=== PATIENT | male | born 1970 | race Caucasian/White ===

== ENCOUNTER 2018-09-08 05:29 | Emergency (ER) | payer OTHER, SELFPAY ==
[2018-09-08 05:30] VITALS: BP 197/92; PULSE 65; RESP 16; TEMP 37.3; O2SAT 97; BMI 36.6
--- NOTE | 2018-09-08 05:31 | ED.RN ---
NO OLD EKGS IN MUSE
--- NOTE | 2018-09-08 05:39 | EKG12_ITS ---
Test Reason : CP Blood Pressure : / mmHG Vent. Rate : 061 BPM Atrial Rate : 061 BPM P-R Int : 192 ms QRS Dur : 124 ms QT Int : 408 ms P-R-T Axes : -18 -48 000 degrees QTc Int : 410 ms Normal sinus rhythm Left anterior fascicular block Abnormal ECG Confirmed by LILI WHEELER ([id number]), online content editor HARDIK ALEMAN ([id number]) on 09/14/2018 3:41:19 PM Referred By: MANGO Confirmed By:LILI WHEELER
--- NOTE | 2018-09-08 05:43 | ED.DCSUM_ITS ---
History of Present Illness Chief Complaint: Chest Pain Informant: Patient Narrative: Stated he awoke from sleep approximately 1 hour ago with left-sided back pain. It was sharp just where his shoulder blade sits. It was difficult to get comfortable. He could not get it to go away until he called the paramedics and they were bringing him in. He took a baby aspirin and he was given 3 more by EMS. It finally went away prior to arrival. He stated he felt a little bit lightheaded when he try to get up. He denies any chest pain. He stated it was making him anxious when it would go away so he called the paramedics. He stated that yesterday in the morning he had similar pain in the same spot that lasted for 3 minutes and went away prior to work. It never came back until it woke him up last night. Last stress test his heart was 10 years ago. He did take his blood pressure tonight and it was elevated. Has a history of remote hypertension but has been on medications for 10 years. He feels asymptomatic. He does have high cholesterol. He is never had a heart attack or heart stents. Last stress test was 10 years ago. Denies any pulmonary embolism risk factors. No family history of dissection. Past Medical History - Allergies and Home Meds Allergies/Adverse Reactions: Allergies No Known Allergies Allergy (Verified 09/08/18 05:30) Primary Care Physician: Yifan Doctor,Out of [NON-STAFF] - Prior records reviewed: Yes Past Medical History: - - Hypertension, high cholesterol Surgical History: - - Reviewed Lives: With Family Smoking Status: Never smoker Alcohol: None Drugs: None Review of Systems General: Denies: Chills, Fever, Sweats Eyes: Denies: Visual changes - bilaterally, Diplopia ENT: Denies: Rhinorrhea, Sore throat Cardiovascular: Denies: Chest pain, Palpitations Respiratory: Denies: Dyspnea, Cough, Dyspnea on exertion Gastrointestinal: Denies: Abdominal pain, Nausea, Vomiting, Diarrhea, Melena, Hematochezia Genitourinary: Denies: Dysuria, Hematuria, Frequency Musculoskeletal: Reports: Back pain. Denies: Extremity Pain Skin: Denies: Rash, Wounds Neurological: Denies: Headache, Weakness, Numbness Physical Exam Vital Signs/Narrative: Vital Signs Temp Pulse Resp BP Pulse Ox 09/08/18 05:30 99.1 F 65 16 197/92 H 97 General: Well nourished, Well developed, No Acute Distress Head: Normocephalic, Atraumatic Eyes: Perrl, EOMI ENT: Moist mucous membranes, No rhinorrhea Neck: Supple, Nontender Cardiovascular: Regular rate, Regular rhythm, No murmurs Respiratory: No distress, CTA bilaterally, Chest nontender Abdomen: Soft, Nontender, Nondistended, Normal bowel sounds Back: Nontender, Normal Inspection Extremities: Nontender, No edema Skin: Normal color, No rash Neurological: Alert, Oriented x3, Cranial nerves II-XII grossly intact, Normal S trength, Normal Sensation Psychological: Normal affect, Normal Mood Diagnostic/Tx/Re-eval - Medical Decision Making EKG obtained shows sinus rhythm at a rate of 61. Left anterior fascicular block noted. T wave inversion in inferior lead III. No other acute ischemic findings. Lab work and chest x-ray obtained. Lab work shows nothing acute. Troponin negative. Chest x-ray shows nothing acute. Mediastinum normal. On reevaluation the patient continues to have no pain. He is resting comfortably. Blood pressure has come down to the 150s systolic. I discussed aortic dissection possibility with the patient. We have a low suspicion however. Given the fact that his pain is resolved his blood pressure has come down and he has no pain in his back anymore with a normal chest x-ray mediastinum I have a low suspicion. Nonetheless we discussed this and at this time he and his family would like to hold off on doing a CAT scan. I think this is reasonable. I have a low suspicion for aortic dissection but it is in the differential. She stated if his pain returns to follow-up with his family doctor or return to the department for further evaluation. He understands he has to have his blood pressure rechecked as an outpatient. ED Disposition - Plan for ED Patient: Disposition: Against Medical Advice Diagnosis: Back pain, Elevated blood pressure reading Instructions: Relieving Back Pain, Discharge Instructions for High Blood Pressure (Hypertension) Referrals: [facility] Doctor,Out of [NON-STAFF] -
[2018-09-08 05:50] VITALS: O2SAT 96
--- NOTE | 2018-09-08 06:00 | RAD_ITS ---
HISTORY: PT HAD SUDDEN ONSET CP TO SHOULDERS. CP RESOLVED PRIOR TO ARRIVAL BUT HYPERTENSIVE FOR SQUAD EXAM:XR Chest 2 Views COMPARISON: None FINDINGS: EKG leads in place. Normal heart and mediastinum. Lung volumes appear normal. No vascular congestion, pleural effusion, or acute pulmonary infiltration. No pneumothorax. The bony thorax appears intact. RAD/Chest PA and Lateral IMPRESSION: Normal chest. at 0618 Reported and signed by: Jose Lindsey MD Electronically Signed: Jose Lindsey, at 6:17 EDT Tel , Service support ,
[2018-09-08 06:02] LABS: Absolute Lymphocyte Count 2.65 X10^3/ul (0.83-4.51); Absolute Neutrophil Count 2.9 X10^3/uL (2.0-7.7); Basophil# 0.02 X10^3/uL; Basophil% 0.3 % (0-1); Eosinophil# 0.13 X10^3/uL; Hematocrit 43.8 % (40-54); Hemoglobin 15.6 g/dl (13.0-16.5); Lymphocyte # 2.65 X10^3/ul (4.0); Lymphocyte % 41.6 % (19-41); Mean Corp Hgb Conc 35.6 g/gl (32-36); Mean Corpuscular Hgb 31.1 pg (27.0-32.0); Mean Corpuscular Volume 87.3 fL (80-94); Mean Platelet Vol. 10.7 fl (6.2-12.0); Monocyte# 0.63 X10^3/uL; Monocyte% 9.9 % (0-10); Neutrophil # 2.93 X10^3/uL (2.7-7.7); Platelet Count 292 K/mm3 (150-450); RBC Distribution Width CV 12.4 % (11.6-14.6); RBC Distribution Width SD 38.7 fl (35.1-43.9); Red Blood Count 5.02 M/mm3 (4.6-6.2); White Blood Count 6.4 K/mm3 (4.4-11.0)
[2018-09-08 06:07] LABS: POSITIVE COUNT NO; POSITIVE DIFFERENTIAL NO; POSITIVE MORPHOLOGY NO
[2018-09-08 06:13] LABS: Anion Gap 6 (5-15); BUN 16 mg/dL (7-18); BUN/Creat Ratio 12.5 RATIO (10-20); Calcium,Total 9.1 mg/dL (8.5-10.1); Chloride 108 mmol/L (98-107); Creatinine, Serum 1.28 mg/dL (0.70-1.30); EST Glomerular Filtration Rate 64 mL/min (>60); Est Glom Filt Rate - Afr Amer 77 mL/min (>60); Estimated Creatinine Clearance 67.54 ml/min; Glucose 111 mg/dL (74-106); Sodium Level 142 mmol/L (136-145)
[2018-09-08 06:23] VITALS: BP 156/95; PULSE 68; RESP 12; O2SAT 96
[2018-09-08 06:49] VITALS: BP 147/97; PULSE 66; RESP 13; O2SAT 95
== END 2018-09-08 06:49 | disposition home or self-care (01) ==
PROVIDERS: Emergency Provider Emergency Medicine; Family Provider Family Medicine; PCP Family Medicine
DX: M54.9 Dorsalgia, unspecified (principal); I10 Essential (primary) hypertension
CPT/HCPCS: 71046; 80048; 84484; 85025; 93005; 99285; A4216

== ENCOUNTER 2023-08-09 10:38 | Emergency (ER) | payer OTHER, SELFPAY ==
[2023-08-09 10:39] VITALS: BP 161/89; PULSE 60; RESP 14; TEMP 36.6; O2SAT 98; BMI 35.6
--- NOTE | 2023-08-09 11:05 | VDLE_ITS ---
Reason For Study: RLE Pain RIGHT LEFT GSV is normal. CFV is compressible, spontaneous, phasic, CFV is compressible, spontaneous, phasic, competent, and demonstrates normal competent and demonstrates normal augmentation. augmentation. FV is compressible, spontaneous, phasic, competent and demonstrates normal augmentation. POP V is compressible, spontaneous, phasic, competent and demonstrates normal augmentation. T/P Trunk is compressible. PTV is compressible. RT PerV is compressible. Procedure This is a venous duplex using B-mode, color flow and spectral Doppler. Exam performed portable in ED. The exam was diagnostic. A preliminary report was called and/or faxed to Dr. Sadler. VL/Venous Duplex US, Unilateral Interpretation Summary Deep veins of the right lower extremity are patent and compressible segmentally . There is no evidence of right lower extremity deep vein thrombosis. Valvular competence andrew ears intact within the proximal deep venous system on the right . The right great saphenous vein a ppears patent and compressible segmentally. The left common femoral vein is patent and compressib le . Ordering Physician: Fredrick Sadler Referring Physician: Tahir Branham Performed By: Madi Reeves RVT
[2023-08-09 12:53] VITALS: BP 150/74; PULSE 68; RESP 17; TEMP 37.2; O2SAT 99
--- NOTE | 2023-08-09 23:32 | EX.ED.DYSGE1 ---
HPI History of Present Illness Chief Complaint: Lower Extremity Injury Narrative Narrative: Patient is a 53-year-old male who is presenting to the ER today with chief complaint of right lateral lower leg pain. Patient had right knee arthroscopically approximately [address] Obrien from the [facility]. Patient was on a bulldozer for over 8 hours on Friday, and patient started having pain to his right lower back, right buttocks, and right lateral leg. Patient states the pain is in his right knee, lateral aspect, but also to his right lateral thigh and right lateral calf. Patient called the [facility] and is recommended that he follow up with urgent care or ER to rule out blood clot. Patient has had lumbar radiculopathy in the past, patient has done decompression in the past that has helped him. Patient was recommended to come to the ER by his orthopedic surgeon to rule out DVT. Patient has no unilateral swelling. Patient has no pain to the posterior aspect of his right lower extremity. He has no chest pain, shortness of breath, nausea, vomiting, or new acute complaints. PFSH PFSH Home Medications NK 09/08/18 [History Last Taken Unknown] hydrocodone-acetaminophen 5-325mg 5mg-325mg 1 tab PO Q6H PRN PRN Pain 3 days #10 TABLETS 08/09/23 [Rx Last Taken Unknown] meloxicam 7.5 mg tablet 7.5 mg PO DAILY #20 tabs 08/09/23 [Rx Last Taken Unknown] methocarbamol 750 mg tablet 750 mg PO Q8H PRN pain #10 tabs 08/09/23 [Rx Last Taken Unknown] methylprednisolone 4 mg tablets in a dose pack 4 mg PO UD ##1 08/09/23 [Rx Last Taken Unknown] Allergy/AdvReac Type Severity Reaction Status Date / Time No Known Allergies Allergy Verified 08/09/23 10:39 Social History Smoking Status: Never smoker ROS ROS ED ROS Narrative Unless otherwise stated in this report or unable to obtain because of the patient's clinical or mental status as evidenced by medical record, the patient's positive and negative responses for review of systems for constitutional, eyes, ENT, cardiovascular, respiratory, gastrointestinal, neurological, , musculoskeletal, and integument systems and related systems to the presenting problem are either stated in the history of present illness or were not pertinent or were negative for the symptoms and/or complaints related to the presenting medical problem. EXAM Physical Exam Narrative Exam Narrative: vital signs reviewed and patient is not hypoxic. General: The patient appears well and in no apparent distress. Patient is resting comfortably on cart. Not toxic, lethargic, or listless. Skin: Warm, dry, no pallor noted. There is no rash noted. Head: Normocephalic, atraumatic Eye: Normal conjunctiva, no drainage, EOMI. PERRL. Ears, Nose, Mouth, and Throat: oral mucosa is moist. Nares patent. Mouth without vesicles. Cardiovascular: Regular Rate and Rhythm, no murmurs, gallops, or rubs Respiratory: Patient is in no distress, no accessory muscle use, lungs are clear to auscultation, no wheezing, rales or rhonchi Musculoskeletal: The patient has full range of motion of all extremities and joints with no difficulty Except of the right leg. Patient has no pain to the posterior aspect of the right posterior thigh, popliteal fossa, and right calf. Patient has moderate tenderness to palpation to the right piriformis muscle. Patient has mild positive right leg straight raising test, negative on the left. Patient has no rash. Patient has full range of motion of his right knee with minimal pain. No unilateral swelling. No pain to the right Achilles tendon, no pain to the bilateral malleoli of right ankle. Patient has no motor, no sensory deficits. Neurological: A&O x4, normal speech, no focal neurological deficits. Psychiatric: Cooperative Const Vital Signs: 08/09/23 10:39 08/09/23 12:53 Temperature 98 F 98.9 F Temperature Source Temporal Pulse Rate 60 68 Respiratory Rate 14 17 Blood Pressure 161/89 H 150/74 H Blood Pressure Mean 113 99 Pulse Ox 98 99 Oxygen Delivery Method Room Air MDM MDM MDM Narrative Medical decision making narrative: Patient ultrasound shows no DVT. Patient agrees that he has most likely right lumbar radiculopathy, sciatica, and piriformis syndrome. Patient will follow up with Dr. Obrien from [facility], and will use ice, Tylenol, anti-inflammatories, Medrol Dosepak, and stretching to help with his symptoms. Patient was on a bulldozer for 8 hours on Friday, patient continued to work throughout the week most likely irritating her previous sciatica and piriformis syndrome. Patient has done decompression in the past, but patient wants to start doing that again. No questions at discharge. Patient had a decompression table at home. No chest pain or shortness of breath. Discharge Plan Triage Chief Complaint: Lower Extremity Injury ED Provider: Fredrick Sadler Dx/Rx/DC Orders Clinical Impression: Piriformis syndrome of right side, Pain in right leg, Lumbar radiculopathy, right Instructions: Low Back Leg Pain Causes, Back Exercises: Hip Rotator Stretch, Hip Rotation (Flexibility), ED Sciatica Prescriptions: New methocarbamol 750 mg tablet 750 mg PO Q8H PRN (Reason: pain) Qty: 10 0RF methylprednisolone [methylprednisolone] 4 mg tablets,dose pack 4 mg PO UD Qty: 1 0RF meloxicam 7.5 mg tablet 7.5 mg PO DAILY Qty: 20 0RF hydrocodone-acetaminophen [hydrocodone-acetaminophen] 5-325 mg tablet 1 tab PO Q6H PRN PRN (Reason: Pain) 3 Days Qty: 10 0RF No Action NK Primary Care Provider: Tahir Branham Referrals: Tahir Branham, [Primary Care Provider] - Activity Restrictions/Additional Instructions: Ice 20 minutes on, 20 minutes off. Do not use heat. Education on sciatica, lumbar radiculopathy, and piriformis syndrome was done at bedside in discharge paperwork. Use [place] as needed, also use Robaxin as needed. Do not operate heavy equipment with Robaxin or [place] in your system for 4 to 6 hours after taking medication. Call Dr. Obrien, orthopedic surgeon, and follow-up for additional treatment, therapy as needed. Disposition Disposition: Home, Self Care Discharge Date/Time: 08/09/23 12:59
== END 2023-08-09 12:59 | disposition home or self-care (01) ==
PROVIDERS: Emergency Provider Emergency Medicine; PCP Family Medicine; Visit Provider Emergency Medicine
DX: M79.661 Pain in right lower leg (principal); M54.16 Radiculopathy, lumbar region
CPT/HCPCS: 93971; 99282